=== PATIENT | male | born 1950 | race Caucasian/White ===

== ENCOUNTER 2023-10-29 15:35 | Emergency (ER) | payer OTHER, SELFPAY ==
[2023-10-29 15:40] VITALS: BP 175/77; BMI 37.1
[2023-10-29 16:10] LABS: % Basophils 0.7 % (0-2); % Eosinophils 1.2 % (0-6); % Immature Granulocytes 0.3 % (0-0.5); % Lymphocytes 27.1 % (20.5-51.1); % Monocytes 8.4 % (1.7-9.3); % Neutrophils 62.3 % (42.2-75.2); Absolute Basophils 0.1 10^3/uL (0-0.2); Absolute Eosinophils 0.2 10^3/uL (0-0.7); Absolute Lymphocytes 3.5 10^3/uL (1.2-3.4); Absolute Monocytes 1.1 10^3/uL (0.1-0.6); Hematocrit 49.3 % (39.0-52.0); Hemoglobin 17.1 g/dL (13.0-18.0); Mean Corp Hgb Conc. 34.7 g/dL (33.0-37.0); Mean Corpuscular Hgb 30.3 pg (27.0-31.0); Mean Corpuscular Volume 87.4 fL (80.0-94.0); Mean Platelet Volume 9.4 fL (7.4-10.4); Nucleated Red Blood Cells % 0 % (-); Platelet Count 279 10^3/uL (130-400); Red Blood Cell Count 5.64 10^6/uL (4.70-6.10); Red Cell Dist. Width 13.3 % (11.5-14.5); White Blood Cell Count 12.9 10^3/uL (4.8-10.8)
[2023-10-29 16:26] LABS: ALT (SGPT) 52 U/L (0-50); AST (SGOT) 46 U/L (17-59); Albumin 4.3 g/dl (3.5-5.0); Alkaline Phosphatase 70 U/L (38-126); Blood Urea Nitrogen 23 mg/dl (9-20); Calcium 10.2 mg/dl (8.4-10.2); Carbon Dioxide 33 mmol/L (22-30); Chloride 105 mmol/L (98-107); Estimated Creatinine Clearance 84 ml/min; Glucose 124 mg/dl (70-99); Potassium 4.5 mmol/L (3.5-5.1); Sodium 141 mmol/L (135-145); Total Bilirubin 0.8 mg/dl (0.2-1.3); eGFR > 60.00
[2023-10-29 16:33] LABS: Troponin I 0.017 ng/ml
--- NOTE | 2023-10-29 18:29 | ED.GENMED ---
History of Present Illness
<Omayra Worley PA-C - Last Filed: 10/29/23 20:56>
General
Chief Complaint: Chest Pain
Source: patient
Exam Limitations: none
Time Seen by Provider: 10/29/23 18:29
Nursing documentation reviewed up to this point in time: agreed with
Travel History
Have you had any contact with someone who has COVID-19?: No
Do you have any symptoms of coronavirus? Fever > 100 degrees, chills, cough, shortness of breath, sore throat, loss of taste or smell, muscle aches, or headache?: No
History of Present Illness
History of Present Illness:
This is a 73 y/o male with a PMH of HTN, hyperlipidemia, who is presenting to emergency department with chest pain for the past 3 days. Patient states that it started kind of randomly and not really related to any eating or exertion. Patient
states that he initially thought his pain was related to acid reflux, and states that he recently ate tacos which she has not had in a while. He tried taking Pepcid which did not relieve his pain. Patient states that the pain is worse when lying
supine however improves with sitting up and improves with exertion. Patient states that his pain is currently 1-2 out of 10. Patient has no associated nausea, vomiting, abdominal pain, back pain. Patient denies recent viral illness or
hospitalization, however does report that he recently has flu shot. Patient has no personal history of coronary artery disease. Patient denies any prolonged periods of immobilization, leg swelling or pain pleuritic pain, prolonged travel, history
of blood clots. Patient reports that his primary doctor ordered an echo to be done later this week because he heard a murmur on exam.
Past History
<Omayra Worley PA-C - Last Filed: 10/29/23 20:56>
Past History
ED Past Medical History: HTN and Hypercholesterolemia
ED Past Surgical History: None
Social History
Personal:
Living: with family
Employment: Employed
Review of Systems
<Omayra Worley PA-C - Last Filed: 10/29/23 20:56>
Review of Systems
All Other Systems: ROS reviewed and negative except as documented in HPI and ROS
Phy Exam
<Omayra Worley PA-C - Last Filed: 10/29/23 20:56>
Physical Exam
Physical Exam:
General: Patient is well-appearing and is in no acute distress
Skin: warm and dry, no rashes or lesions
Cardiac: Regular rate and rhythm, no murmurs, no rub. Chest pain is not reproducible on exam
Pulm: Normal respiratory effort, no wheezes rales or rhonchi, lung sounds equal on both sides
Abdomen: Patient has no tenderness palpation. No pulsatile abdominal mass.
Neuro: Patient is awake and alert
Scores
<Omayra Worley PA-C - Last Filed: 10/29/23 20:56>
Heart Score for Chest Pain Patients
STEMI patient?: No
History: Slightly or Non-Suspicious
ECG: Normal
Age: >/= 65 years
Risk Factors: 1 or 2 Risk Factors
Troponin: </= Normal Limit
Heart Score for Chest Pain Patients: 3
Heart Score Risk: 2.5% MACE over next 6 weeks
Course
<Omayra Worley PA-C - Last Filed: 10/29/23 20:56>
Orders/Labs/Results
Orders:
Orders
10/29/23 15:39
Electrocardiogram (*1) Urgent
Reason for Study: Chest Pain
EKG- Treatment ONCE
10/29/23 16:01
Complete Blood Count/With Diff Urgent
Comprehensive Metabolic Panel Urgent
Troponin I Urgent
10/29/23 19:12
Ketorolac [Toradol] 15 mg IM NOW STA
Abnormal Lab Results
10/29/23
16:01
WBC 12.9 H 10^3/uL
(4.8-10.8)
Absolute Neuts (auto) 8.0 H 10^3/uL
(1.4-6.5)
Absolute Lymphs (auto) 3.5 H 10^3/uL
(1.2-3.4)
Absolute Monos (auto) 1.1 H 10^3/uL
(0.1-0.6)
Carbon Dioxide 33 H mmol/L
(22-30)
BUN 23 H mg/dl
(9-20)
Glucose 124 H mg/dl
(70-99)
ALT 52 H U/L
(0-50)
10/29/23 16:01
10/29/23 16:01
Vital Signs
Initial and Last Documented VS:
Initial Vital Signs
Temp Pulse Resp BP Pulse Ox
98 F 84 16 175/77 96
10/29/23 15:40 10/29/23 15:40 10/29/23 15:40 10/29/23 15:40 10/29/23 15:40
Last Documented Vital Signs
Temp Pulse Resp BP Pulse Ox
98 F 62 16 142/72 95
10/29/23 15:40 10/29/23 19:21 10/29/23 19:15 10/29/23 19:21 10/29/23 19:00
<Ab Jarvis, DO - Last Filed: 10/29/23 19:13>
Orders/Labs/Results
Orders:
Orders
10/29/23 15:39
Electrocardiogram (*1) Urgent
Reason for Study: Chest Pain
EKG- Treatment ONCE
10/29/23 16:01
Complete Blood Count/With Diff Urgent
Comprehensive Metabolic Panel Urgent
Troponin I Urgent
10/29/23 19:12
Ketorolac [Toradol] 15 mg IM NOW STA
Abnormal Lab Results
10/29/23
16:01
WBC 12.9 H 10^3/uL
(4.8-10.8)
Absolute Neuts (auto) 8.0 H 10^3/uL
(1.4-6.5)
Absolute Lymphs (auto) 3.5 H 10^3/uL
(1.2-3.4)
Absolute Monos (auto) 1.1 H 10^3/uL
(0.1-0.6)
Carbon Dioxide 33 H mmol/L
(22-30)
BUN 23 H mg/dl
(9-20)
Glucose 124 H mg/dl
(70-99)
ALT 52 H U/L
(0-50)
10/29/23 16:01
10/29/23 16:01
Vital Signs
Initial and Last Documented VS:
Initial Vital Signs
Temp Pulse Resp BP Pulse Ox
98 F 84 16 175/77 96
10/29/23 15:40 10/29/23 15:40 10/29/23 15:40 10/29/23 15:40 10/29/23 15:40
Last Documented Vital Signs
Temp Pulse Resp BP Pulse Ox
98 F 62 16 142/72 95
10/29/23 15:40 10/29/23 19:21 10/29/23 19:15 10/29/23 19:21 10/29/23 19:00
Cinthailt;Omayra Worley PA-C - Last Filed: 10/29/23 20:56>
MDM/Problems Addressed
Differential Diagnosis Includes:
Differentials include costochondritis, pericarditis, GERD, ACS
MDM/Problems Addressed:
Chest pain
Chronic conditions affecting care: HTN and Other (Hyperlipidemia)
Acute Exacerbation and/or Progression of Chronic Illness: HTN
<Omayra Worley PA-C - Last Filed: 10/29/23 20:56>
*Pulse Oximetry
Patient hypoxic: no
*EKG
Interpreted by ED Provider?: Yes
EKG Intrepretation Date: 10/29/23
Interpretation: abnormal
Comparison EKG: no changes
Heart Rate: 76
Rate: normal
Rhythm: sinus
[place]: normal axis
Interval: other (1st degree AV block)
QRS Pattern: normal QRS
Ischemia: no ischemia
*Spool Hauler Interpretation
Rate: normal
Interpretation: normal
Heart Rate: 68
Rhythm: sinus
*Critical Care Note
Total Time (30-74mins, 75-104mins- exclusive of procedures): Not Applicable
Data Reviewed
Review of Other/Old Records Reveals: Records (Reviewed ER physician documentation from 10/28/2020)
Source: patient
Further Testing Considered But Not Given:
Considered chest x-ray however patient has no upper respiratory symptoms, no pleuritic pain
<Omayra Worley PA-C - Last Filed: 10/29/23 20:56>
Patient Management
Escalation/DeEscalation of care consider admission/obs:
73-year-old male with past medical history of hypertension, hyperlipidemia presenting to emergency department today with chest pain for the past few days. Patient states that is very mild, however it is worse with lying supine and improves with
sitting up. Patient physical exam is unremarkable. His CBC and CMP are unremarkable. His EKG shows normal sinus rhythm with a first-degree AV block, and troponin was negative. Patient did have a flu shot. At this time, I am most concerned about
pericarditis versus costochondritis. We did give patient of Toradol here in the emergency department. We advised patient to use NSAIDs at home. Primary care provider was concerned about a new murmur and ordered an echo for him. I was not able to
appreciate a murmur on exam. We have arranged for patient to follow-up with [facility]. Who will call him for an appointment with extremities. Patient is medically stable for discharge. Appropriate return cautions given
ED Attending Note
<Omayra Worley PA-C - Last Filed: 10/29/23 20:56>
-
Portions of this chart may have been created with voice recognition software.� Occasional wrong word or��sound alike� substitutions may have occurred due to the inherent limitations of voice recognition software.
<Ab Jarvis DO - Last Filed: 10/29/23 19:13>
ED Attending Note
Patient seen and examined by attending physician: Yes
I performed the substantive portion of visit, reviewed & personally made and approve the management plan that is documented in note by myself or CANDELARIA.: Yes
ED Attending Note:
I have seen and evaluated the patient with a [id number] encounter. I have spoken to the advance practicer provider and involved in the medical history, the physical exam, medical decision making.
Evaluation and management service: agree unless noted differently below.
Results interpretation: agree unless noted differently below.
Focused HPI: 73-year-old male presenting with left-sided chest pain that occurred randomly. Symptoms are improved with exertion. Symptoms are worse when he lays flat and better when he leans forward
Physical exam: Sitting in bed comfortably. Heart regular rate and rhythm. No murmur auscultated. No friction rub auscultated
Medical Decision Making: Given the pain with position, we discussed possible gastritis versus pericarditis. Will start NSAIDs. Troponin negative. EKG nonischemic. Doubt ACS given that symptoms are better with exertion. Discussed follow-up with
cardiology for echo
Discharge Plan
Departure
Patient Disposition: Home (Routine Discharge)
Date of Disposition: 10/29/23
Time of Disposition: 19:17
Patient with high blood pressure during this ER visit?: Yes
Condition: Good
Discharge Problem:
Chest pain
Instructions: Chest Pain CBC Follow Up, BLOOD PRESSURE, Chest Pain
Prescriptions:
No Action
atorvastatin 20 MG tablet
20 mg PO DAILY
lisinopril-hydrochlorothiazide 20 MG/12.5 MG tablet
1 tab PO DAILY
aspirin 81 MG tablet,chewable
81 mg PO DAILY
Referrals:
Je Lilly, [Family Provider] -
Activity Restrictions/Additional Instructions:
Please return to the emergency department should you experience fevers or chills, pain with exertion, shortness of breath, back pain, abdominal pain, or other concerning signs or symptoms.
We have given you a number for [facility]. You can expect a call from them in the coming days.
Please follow up with your primary care provider.
Interventions
Interventions:
*Risk Screen - Suicide Last Done: 10/29/23 15:40
*General Assessment Last Done: 10/29/23 19:30
*Neglect/Abuse Screening Last Done: 10/29/23 15:40
ED- Fall Risk Assessment Last Done: 10/29/23 19:30
*ED COVID-19 Vaccine History Last Done: 10/29/23 15:40
*Nursing Disposition Last Done: 10/29/23 19:30
ED- Cardiac Assessment Last Done: 10/29/23 19:00
Discharge Date and Time
Discharge Date/Time: 10/29/23 19:30
[2023-10-29 18:41] VITALS: BP 160/71
[2023-10-29 19:00] VITALS: BP 168/71
[2023-10-29] MEDS: TORADOL 15 MG IM (19:18)
[2023-10-29 19:21] VITALS: BP 142/72
== END 2023-10-29 19:30 | disposition home or self-care (01) ==
LOC: EMR 15:35
PROVIDERS: Emergency Medicine; EMERGENCY PHYSICIAN Student in an Organized Health Care Education/Training Program; FAMILY PHYSICIAN Family Medicine
DX: R07.89 Other chest pain (principal); I10 Essential (primary) hypertension; E78.00 Pure hypercholesterolemia, unspecified; I44.0 Atrioventricular block, first degree
CPT/HCPCS: 99283; 96372; 80053; 84484; 85025; 93005

== ENCOUNTER → 2023-11-16 11:19 | Outpatient (REF) | payer OTHER, SELFPAY | LOC: DHCBC/DCA 11:19 | PROVIDERS: ATTENDING PHYSICIAN Internal Medicine Cardiovascular Disease; FAMILY PHYSICIAN Family Medicine | DX: R07.2 Precordial pain (principal) | CPT/HCPCS: 78452; 93017; A9500 ==

== ENCOUNTER → 2023-12-12 15:11 | Outpatient (REF) | payer OTHER, SELFPAY | LOC: DHCBC MAIN 15:11 | PROVIDERS: ATTENDING PHYSICIAN Internal Medicine Cardiovascular Disease; FAMILY PHYSICIAN Family Medicine | DX: R07.2 Precordial pain (principal) | CPT/HCPCS: 93306 ==

== ENCOUNTER 2024-05-14 14:41 | Emergency (ER) | payer OTHER, SELFPAY ==
[2024-05-14 14:51] VITALS: BP 161/92
--- NOTE | 2024-05-14 17:20 | ED.GENMED ---
History of Present Illness
General
Chief Complaint: Musculo-Skeletal Complaint
Source: patient
Exam Limitations: none
Time Seen by Provider: 05/14/24 16:28
Nursing documentation reviewed up to this point in time: agreed with
History of Present Illness
History of Present Illness:
Patient is a 74-year-old male who presents to the ER complaining of pain to the right upper trapezius which radiates down right arm. He reports 3 weeks ago he lifted a case of water with his right arm and has had pain ever since. He did see his
family doctor who initially gave him steroids. He also saw [facility] orth[facility] who did an x-ray and gave him a cortisone injection in the area. He was prescribed tells him oxycodone and tramadol but nothing is helping. He does have a
prescription for physical therapy and is scheduled to see them tomorrow and also repeat appointment with [facility] orth[facility] on . He has not able to sleep and nothing is helping his symptoms. He denies any actual neck pain he
complains of pain to the right upper trapezius and does feel radiating to his right arm. Pain is constant. He denies any numbness tingling weakness to the area
Past History
Past History
ED Past Medical History: HTN and Hypercholesterolemia
ED Past Surgical History: None
Social History
Personal:
Living: with family
Employment: Employed
Review of Systems
Review of Systems
Allergies reviewed?: Yes
All Other Systems: ROS reviewed and negative except as documented in HPI and ROS
Constitutional: Reports no symptoms
Musculoskeletal: Reports back pain (pain to right upper trapezius )
Neurological: Reports no symptoms
Psychiatric: Reports no symptoms
Phy Exam
General Physical Exam
General Presentation: well appearing
General age: appears stated age
General Skin: warm and dry
General Habitus: normal
General Mental: alert
General Hydration: appears well hydrated
Neurological Exam
Neurological Exam: alert, oriented x3, no motor deficits, no sensory deficits and other (Normal distal sensation bilaterally normal yarn comber strength)
Musculoskeletal Exam
Musculoskeletal Exam: other (Tender to right posterior trapezius; lno bony tenderness to right shoulder able to abduct without difficulty)
Skin Exam
Skin Exam: normal color and warm/dry
Psychiatric Exam
Psychiatric Exam: normal mood/affect
Course
Orders/Labs/Results
Orders:
Orders
05/14/24 15:16
Shoulder, Right, Trauma [CR Shoulder, Trauma - Right] Urgent
Comment:
Reason For Exam: right shoulder pain
05/14/24 17:15
Ketorolac [Toradol] 30 mg IM NOW STA
Lidocaine [Lidocaine 4% Patch] 1 patch TOPICAL NOW STA
Apply Lidocaine patch(s) to:: right upper trapezius
diazePAM [Valium Injection] 5 mg IM NOW STA
05/14/24 18:20
Prednisone [Deltasone] 50 mg PO NOW STA
05/14/24 18:23
Prednisone [Deltasone] 50 mg PO NOW STA
Vital Signs
Initial and Last Documented VS:
Initial Vital Signs
Temp Pulse Resp BP Pulse Ox
98.0 F 82 16 161/92 98
05/14/24 14:51 05/14/24 14:51 05/14/24 14:51 05/14/24 14:51 05/14/24 14:51
Last Documented Vital Signs
Temp Pulse Resp BP Pulse Ox
98.0 F 64 20 153/78 98
05/14/24 14:51 05/14/24 18:16 05/14/24 18:16 05/14/24 18:16 05/14/24 14:51
MDM/Problems Addressed
Differential Diagnosis Includes:
Not limited to muscle spasm muscle strain pinched nerve
MDM/Problems Addressed:
Symptoms are consistent with muscular pain possible pinched nerve with tenderness over the right upper trapezius muscle no bony tenderness to shoulder. He does feel better pain is now 2 out of 10. Will DC with Valium 5 mg every 8 hours as needed
along with lidocaine patch and prednisone for the next 4 days will give first dose here in the ER. He has an appointment with orthopedics on and physical therapy tomorrow which I instructed him to keep both of these appointments he has no
acute distress neurologically intact stable for discharge home
*Critical Care Note
Total Time (30-74mins, 75-104mins- exclusive of procedures): Not Applicable
ED Attending Note
-
Portions of this chart may have been created with voice recognition software.� Occasional wrong word or��sound alike� substitutions may have occurred due to the inherent limitations of voice recognition software.
Discharge Plan
Departure
Patient Disposition: Home (Routine Discharge)
Date of Disposition: 05/14/24
Time of Disposition: 18:21
Patient with high blood pressure during this ER visit?: Yes
Condition: Fair
Covid-19: Not Applicable
Discharge Problem:
Muscle pain
Instructions: Muscle and Bone Pain (DC)
Prescriptions:
New
diazepam [Valium] 5 mg tablet
5 mg PO Q8H PRN (Reason: muscle spasm) Qty: 10 0RF
prednisone 20 mg tablet
40 mg PO DAILY Qty: 8 0RF
lidocaine 5 % adhesive patch,medicated
1 patch topical DAILY Qty: 15 0RF
Rx Instructions:
remove after 12 hrs
No Action
atorvastatin 20 MG tablet
20 mg PO DAILY
lisinopril-hydrochlorothiazide 20 MG/12.5 MG tablet
1 tab PO DAILY
aspirin 81 MG tablet,chewable
81 mg PO DAILY
Referrals:
Je Lilly, DO [Family Provider] -
Activity Restrictions/Additional Instructions:
Symptoms are consistent with possible muscle spasm, muscle pain, possible pinched nerve. You may continue to alternate between ice and heat whichever works. A prescription for Valium was sent to pharmacy take as directed every 8 hours as needed.
This will cause drowsiness no driving or drink alcohol while taking this medication. In addition you were given the first dose of oral steroids here in the ER. You may take daily for the next 4 days. A prescription for lidocaine patch was also
sent to pharmacy take as directed. Follow-up with your orthopedic doctor as scheduled on and physical therapy tomorrow return if any worsening of symptoms.
You may also take Tylenol as needed 650 mg orally every 4-6 hours
Interventions
Interventions:
*Risk Screen - Suicide Last Done: 05/14/24 18:00
*General Assessment Last Done: 05/14/24 18:00
ED-Musculoskeletal Assessment Last Done: 05/14/24 18:00
Discharge Date and Time
Print Language: CHINESE
[2024-05-14] MEDS: TORADOL 30 MG IM (17:38)
[2024-05-14] MEDS: LIDOCAINE 4% PATCH 1 PATCH TOPICAL (17:38)
[2024-05-14] MEDS: VALIUM INJECTION 5 MG IM (17:39)
[2024-05-14 18:16] VITALS: BP 153/78
[2024-05-14] MEDS: DELTASONE 50 MG PO (18:30)
== END 2024-05-14 18:34 | disposition home or self-care (01) ==
LOC: EMR 14:41
PROVIDERS: EMERGENCY PHYSICIAN Emergency Medicine; FAMILY PHYSICIAN Family Medicine
DX: M79.601 Pain in right arm (principal); M54.9 Dorsalgia, unspecified; X50.0XXA Overexertion from strenuous movement or load, initial encounter; Y93.89 Activity, other specified; E78.00 Pure hypercholesterolemia, unspecified; I10 Essential (primary) hypertension; Z85.828 Personal history of other malignant neoplasm of skin
CPT/HCPCS: 99284; 96372 ×2; 73030

== ENCOUNTER → 2024-07-03 06:43 | Outpatient (REF) | payer OTHER, SELFPAY | LOC: PAVMRI 06:43 | PROVIDERS: ATTENDING PHYSICIAN Physical Medicine & Rehabilitation; FAMILY PHYSICIAN Family Medicine | DX: M75.41 Impingement syndrome of right shoulder (principal) | CPT/HCPCS: 73221 ==

== ENCOUNTER → 2025-08-08 10:13 | Outpatient (REF) | payer OTHER, SELFPAY | LOC: HWRCS 10:13 | PROVIDERS: ATTENDING PHYSICIAN Nurse Practitioner; FAMILY PHYSICIAN Family Medicine | DX: I77.810 Thoracic aortic ectasia (principal) | CPT/HCPCS: 93306 ==